=== PATIENT | female | born 2000 | race Caucasian/White ===

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

== ENCOUNTER 2022-12-21 13:38 | Inpatient (IN) ==
[2022-12-21 15:46] LABS: ABS Eosinophils 0.1 10^3/uL (0.0-0.5); ABS Lymphocytes 1.7 10^3/uL (1.0-4.8); ABS Neutrophils 7.7 10^3/uL (1.5-7.6); ABS Nucleated RBC 0.01 10^3/ul; Eosinophil % 0.6 %; Hematocrit 37.1 % (35-45); Hemoglobin 12.5 g/dL (11.5-14.3); Lymphocyte % 16.5 %; Mean Corpuscular Hemoglobin 28.8 pg (27-33); Mean Corpuscular Hgb Conc 33.8 g/dL (31-36); Mean Corpuscular Volume 85.2 fL (80-97); Mean Platelet Volume 8.5 fL (7.5-11.2); Nucleated Red Blood Cells % 0.1 /100 WBC (0.0-0.4); Platelet Count 311 10^3/uL (150-450); Red Blood Count 4.35 10^6/uL (3.63-4.92); Red Cell Distribution Width 14.1 % (12-17); White Blood Count 10.5 10^3/uL (3.8-11.8)
[2022-12-21 16:02] LABS: Albumin 4.2 g/dL (3.2-5.2); Albumin/Globulin Ratio 1.4 (1-3); C Reactive Protein 22.58 mg/L (<8.01); Creatinine, Serum 0.81 mg/dL (0.51-0.95); Potassium 3.6 mmol/L (3.5-5.0); Total Bilirubin 0.7 mg/dL (0.2-1.0); Total Protein 7.2 g/dL (6.4-8.9); eGFR CKD-EPI 106.5 (>60)
[2022-12-21] MEDS ORDERED: Vancomycin 1,250 MG in NS 0.9% 250 ml 250 ML IVPB ONE (16:40)
[2022-12-21] MEDS ORDERED: Amphetamine MIXED SALT 10mgTAB PO PRN (17:28)
[2022-12-21 17:30] LABS: Erythrocyte Sed Rate 9 mm/Hr (0-19)
[2022-12-21] MEDS ORDERED: Vancomycin per Pharmacy 1 EA NOTE FOLLOW UP SCH (18:00)
[2022-12-21] MEDS: Cefepime 1 GM in Dextrose 1 GM/50 ML BAG IV SCH (18:21)
[2022-12-21] MEDS ORDERED: Ondansetron 4 mg VIAL 2 MG/ML 2 ml VIAL IV ONE (20:44)
[2022-12-22] MEDS ORDERED: Vancomycin 1,000 MG in NS 0.9% 250 ml 250 ML IVPB SCH (04:00)
[2022-12-22] MEDS ORDERED: Dexamethasone IV 4 MG/ML VIAL 1 ml VIAL ONE (07:08)
[2022-12-22] MEDS ORDERED: Bupivacaine 0.25% SDV 30 ML ONE (07:08)
[2022-12-22] MEDS ORDERED: Metoclopramide 5 MG/ML VIAL (10 mg) ONE (07:08)
[2022-12-22] MEDS ORDERED: Propofol 10 MG/ML 20 ML BTL ONE (07:08)
[2022-12-22] MEDS ORDERED: fentaNYL 100 mcg/2 ml 50 MCG/ML VIAL ONE (07:08)
[2022-12-22] MEDS ORDERED: Ondansetron 4 mg VIAL 2 MG/ML 2 ml VIAL ONE (07:08)
[2022-12-22] MEDS ORDERED: HYDROmorphone 0.5 MG/0.5 ML SYRINGE ONE (07:08)
[2022-12-22] MEDS: Vancomycin 1,000 MG in NS 0.9% 250 ml 250 ML IVPB SCH ×2 (09:13→12:14)
[2022-12-22] MEDS: Cefepime 1 GM in Dextrose 1 GM/50 ML BAG IV SCH (09:13)
[2022-12-22] MEDS ORDERED: fentaNYL 100 mcg/2 ml 50 MCG/ML VIAL IV PRN (09:42)
[2022-12-22] MEDS ORDERED: Prochlorperazine 5 mg/ml 2 ml VIAL (10 mg) IV PRN (09:42)
[2022-12-22] MEDS ORDERED: Naloxone 0.4 mg VIAL 0.4 mg/ml 1 ml VIAL IV PRN (09:42)
[2022-12-22] MEDS: [UNRECOGNIZED DRUG - OTHER] PO SCH (12:12)
[2022-12-22] MEDS: IRON PO SCH (12:12)
[2022-12-22] MEDS: ETHINYL ESTRADIOL PO SCH (12:12)
[2022-12-22] MEDS: LEVONORGESTREL PO SCH (12:12)
[2022-12-22] MEDS: ceFAZolin 1 GM (AddVan) IVPB SCH ×2 (16:22→21:50)
[2022-12-22] MEDS: Lisdexamfetamine 10 mg CAP(NF) PO SCH (16:49)
[2022-12-22] MEDS ORDERED: Vancomycin Trough Check NOTE FOLLOW UP ONE (19:30)
[2022-12-23] MEDS: ceFAZolin 1 GM (AddVan) IVPB SCH ×2 (03:16→10:09)
[2022-12-23 06:53] LABS: ABS Eosinophils 0.1 10^3/uL (0.0-0.5); ABS Neutrophils 6.8 10^3/uL (1.5-7.6); Eosinophil % 0.7 %; Hematocrit 34.3 % (35-45); Hemoglobin 11.7 g/dL (11.5-14.3); Lymphocyte % 27.9 %; Mean Corpuscular Hemoglobin 29.5 pg (27-33); Mean Corpuscular Volume 86.7 fL (80-97); Mean Platelet Volume 8.8 fL (7.5-11.2); Platelet Count 308 10^3/uL (150-450); Red Blood Count 3.95 10^6/uL (3.63-4.92); Red Cell Distribution Width 13.6 % (12-17); White Blood Count 10.9 10^3/uL (3.8-11.8)
[2022-12-23 07:07] LABS: Albumin 3.7 g/dL (3.2-5.2); Albumin/Globulin Ratio 1.4 (1-3); C Reactive Protein 19.91 mg/L (<8.01); Calcium 8.7 mg/dL (8.6-10.3); Creatinine, Serum 0.74 mg/dL (0.51-0.95); Globulin 2.6 g/dL (2-4); Potassium 3.7 mmol/L (3.5-5.0); Total Bilirubin 0.4 mg/dL (0.2-1.0); Total Protein 6.3 g/dL (6.4-8.9); eGFR CKD-EPI 118.7 (>60)
[2022-12-23 08:31] LABS: Erythrocyte Sed Rate 15 mm/Hr (0-19)
[2022-12-23 10:01] VITALS: BP 105/70
[2022-12-23] MEDS: Lisdexamfetamine 10 mg CAP(NF) PO SCH (10:08)
[2022-12-23] MEDS: [UNRECOGNIZED DRUG - OTHER] PO SCH (10:10)
[2022-12-23] MEDS: LEVONORGESTREL PO SCH (10:10)
[2022-12-23] MEDS: ETHINYL ESTRADIOL PO SCH (10:10)
[2022-12-23] MEDS: IRON PO SCH (10:10)
== END 2022-12-23 13:35 | disposition home or self-care (01) | DRG 721 ==
LOC: EDHOLD 13:38 → ED 13:38 → MED 21:25
PROVIDERS: ADMIT Orthopaedic Surgery Adult Reconstructive Orthopaedic Surgery; ATTEND Orthopaedic Surgery Adult Reconstructive Orthopaedic Surgery